=== PATIENT | female | born 2000 | race Caucasian/White ===

== ENCOUNTER → 2022-03-08 | Outpatient (CLI) | payer BC ==
[~2022-03-08] MED LIST: AZITHROMYCIN250 MG PO; DECADRON6 MG PO; OMNICEF 300 MG300 MG PO; VENTOLIN HFA 66.7 GM INH
== END ==
LOC: US 09:05
DX: R10.13 Epigastric pain (principal); R93.2 Abnormal findings on diagnostic imaging of liver and biliary tract
CPT/HCPCS: 76705